=== PATIENT | male | born 1970 ===

== ENCOUNTER 2022-03-15 12:26 | Emergency (ER) | payer OTHER ==
[~2022-03-15] VITALS: Ht 165 cm; Wt 75.0 kg
[2022-03-15 12:45] VITALS: BP 142/95
--- NOTE | 2022-03-15 14:02 | ED General ---
General Chief Complaint: COVID19 Suspect/Confirmed Stated Complaint: COVID TESTING Nursing Triage Note: PT AMB TO ED BY POV AND WOULD LIKE A COVID PCR TEST BECAUSE HE IS TRAVELING TO [place]. Source of Information: Patient Exam Limitations: No Limitations History of Present Illness Date Seen by Provider: Mar 15, 2022 Time Seen by Provider: 13:30 Initial Comments Presented to ED for COVID test. States he needed PCR test before his flight to [place]. Denies fever, chills, cough, shortness of breath, nausea, vomiting, abdominal pain. Allergies and Home Medications Patient Home Medication List Home Medication List Reviewed: Yes Review of Systems Review of Systems Constitutional: see HPI Past Czhbwmo-[id number]-Dgklxd Hx Patient Social History Tobacco Use?: No Use of E-Cig and/or Vaping dev: No Substance use?: No Alcohol Use?: No Pt feels they are or have been: No Immunizations Up To Date Influenza Vaccine Up-to-Date: No; Not Current First/Initial COVID19 Vaccinat: 2020 Second COVID19 Vaccination Ross: 2020 Physical Exam Vital Signs Vital Signs - First Documented 03/15/22 12:45 Temp 37.1 Pulse 85 Resp 16 B/P (MAP) 142/95 (111) Pulse Ox 99 O2 Delivery Room Air Capillary Refill : Less Than 3 Seconds Height, Weight, BMI Height: '" Weight: lbs. oz. kg; 27.00 BMI Method: General Appearance: No Apparent Distress, WD/WN Eyes: Bilateral Eye Normal Inspection, Bilateral Eye EOMI HEENT: Normal ENT Inspection Neck: Full Range of Motion, Normal Inspection, Non Tender Respiratory: Lungs Clear, Normal Breath Sounds, No Accessory Muscle Use, No Respiratory Distress Cardiovascular: Regular Rate, Rhythm, No Murmur Extremity: Normal Inspection, Normal Range of Motion Neurologic/Psychiatric: Alert, Oriented x3, No Motor/Sensory Deficits, Normal Mood/Affect Skin: Normal Color, Warm/Dry Progress/Results/Core Measures Suspected Sepsis SIRS Temperature: Pulse: 85 Respiratory Rate: 16 Blood Pressure 142 /95 Mean: 111 Results/Orders Lab Results Laboratory Tests Test 03/15/22 12:55 Range/Units Influenza Type A (RT-PCR) Not Detected Not Detecte Influenza Type B (RT-PCR) Not Detected Not Detecte SARS-CoV-2 RNA (RT-PCR) Not Detected Not Detecte My Orders Orders - PORSHA,STORMY D MACHINIST BRAKE Covid 19 Inhouse Test (03/15/22 12:27) Influenza A And B By Pcr (03/15/22 12:27) Vital Signs/I&O 03/15/22 12:45 Temp 37.1 Pulse 85 Resp 16 B/P (MAP) 142/95 (111) Pulse Ox 99 O2 Delivery Room Air Capillary Refill : Less Than 3 Seconds Blood Pressure Mean: 111 Progress Note : Progress Note COVID test negative. No discharge instructions given. Copy provided per patient request. Education provided on local facilities that provide COVID testing. Departure Impression Primary Impression: Covid Test Disposition: HOME, SELF-CARE Condition: Stable/Unchanged Departure-Patient Inst. Decision time for Depature: 13:46 Referrals: NO,LOCAL PHYSICIAN (PCP/Family) Primary Care Physician Patient Instructions: NO INSTRUCTIONS GIVEN Add. Discharge Instructions: N.A All discharge instructions reviewed with patient and/or family. Voiced understanding. ZENAIDA STORY MACHINIST BRAKE Mar 15, 2022 14:02
== END 2022-03-15 14:02 | disposition home or self-care (01) ==
LOC: ER 12:31
DX: Z11.52 Encounter for screening for COVID-19 (principal); Z20.822 Contact with and (suspected) exposure to COVID-19
CPT/HCPCS: 87636; 99283

== ENCOUNTER 2022-03-20 11:10 | Emergency (ER) | payer OTHER ==
[~2022-03-20] VITALS: Ht 170 cm; Wt 75.0 kg
--- NOTE | 2022-03-20 11:58 | ED General ---
General Chief Complaint: General Problems/Pain Stated Complaint: COVID TEST Nursing Triage Note: PT PRESENTS TO ED WANTING RAPID COVID TEST FOR INTERNATIONAL FLIGHT SCHEDULED FOR SUNDAY. PT REPORTS HE HAS TO HAVE A NEGATIVE COVID TEST WITHIN 48 HOURS OF HIS FLIGHT. History of Present Illness Date Seen by Provider: Mar 20, 2022 Time Seen by Provider: 11:10 Initial Comments 51 year old male presents for COVID test to travel to [place]. He had a test last week, negative, but his flight was delayed and he needs another test. He denies any symptoms. Associated Systoms: Denies Symptoms Allergies and Home Medications Allergies Coded Allergies: No Known Drug Allergies (Unverified , 03/20/22) Patient Home Medication List Home Medication List Reviewed: Yes Review of Systems Review of Systems Constitutional: no symptoms reported, see HPI All Other Systems Reviewed Negative Unless Noted: Yes Past Ryjhvaf-Tgqwgx-Xdikym Hx Patient Social History Tobacco Use?: No Substance use?: No Alcohol Use?: Yes Alcohol Frequency: Once in a while Pt feels they are or have been: No Immunizations Up To Date First/Initial COVID19 Vaccinat: 2020 Second COVID19 Vaccination Ross: 2020 Third COVID19 Vaccination Date: 2020 Past Medical History Surgery/Hospitalization HX: N/A Family Medical History Reviewed Nursing Family Hx Physical Exam Vital Signs Vital Signs - First Documented 03/20/22 11:25 Temp 36.6 Pulse 89 Resp 18 B/P (MAP) 159/100 (119) Pulse Ox 100 Capillary Refill : Less Than 3 Seconds Height, Weight, BMI Height: '" Weight: lbs. oz. kg; 25.00 BMI Method: General Appearance: No Apparent Distress, WD/WN Respiratory: Chest Non Tender, Lungs Clear, Normal Breath Sounds Cardiovascular: Regular Rate, Rhythm, No Edema Neurologic/Psychiatric: Alert, Oriented x3, No Motor/Sensory Deficits, Normal Mood/Affect Progress/Results/Core Measures Suspected Sepsis SIRS Temperature: Pulse: 89 Respiratory Rate: 18 Blood Pressure 159 /100 Mean: 119 Results/Orders Lab Results Laboratory Tests Test 03/20/22 11:30 Range/Units Influenza Type A (RT-PCR) Not Detected Not Detecte Influenza Type B (RT-PCR) Not Detected Not Detecte SARS-CoV-2 RNA (RT-PCR) Not Detected Not Detecte My Orders Orders - SHELL CRISTINA Covid 19 Inhouse Test (03/20/22 11:22) Influenza A And B By Pcr (03/20/22 11:22) Vital Signs/I&O 03/20/22 11:25 Temp 36.6 Pulse 89 Resp 18 B/P (MAP) 159/100 (119) Pulse Ox 100 Capillary Refill : Less Than 3 Seconds Blood Pressure Mean: 119 Departure Impression Primary Impression: General medical exam Disposition: 01 HOME, SELF-CARE Condition: Improved Departure-Patient Inst. Decision time for Depature: 11:30 Referrals: NO,LOCAL PHYSICIAN (PCP/Family) Primary Care Physician Add. Discharge Instructions: You are COVID and Flu Negative. If you develop any symptoms, you will want to test. Return to Emergency Dept for new/urgent healthcare problems. All discharge instructions reviewed with patient and/or family. Voiced understanding. SHELL CRISTINA Mar 20, 2022 11:58
[2022-03-20 12:13] VITALS: BP 159/100
== END 2022-03-20 12:13 | disposition home or self-care (01) ==
LOC: EDUNIT# 11:10 → ER 11:12
DX: Z00.00 Encounter for general adult medical examination without abnormal findings (principal); Z20.822 Contact with and (suspected) exposure to COVID-19
CPT/HCPCS: 87636; 99283